=== PATIENT | female | born 1960 ===

== ENCOUNTER → 2019-03-16 20:57 | Outpatient (ROUT) | payer OTHER, SELFPAY ==
[2019-03-16 21:42] LABS: Add Manual Diff / Slide Review NO; Basophils Absolute Auto 100 /uL (0-100); Eosinophils Absolute Auto 100 /uL (0-450); Eosinophils Percent Auto 1.6 % (2-4); Hematocrit 45.8 % (36-46); Hemoglobin 15.4 g/dL (12.0-16.0); Lymphocytes Absolute Auto 1600 /uL (1100-4500); Lymphocytes Percent Auto 31.5 % (25-40); Mean Corpuscular HGB Conc 33.7 % (30-36); Mean Corpuscular Hemoglobin 30.6 PG (26-34); Mean Corpuscular Volume 90.9 fL (80-100); Monocytes Absolute Auto 300 /uL (0-900); Monocytes Percent Auto 5.5 % (3-14); Neutrophils Absolute Auto 3000 /uL (1500-7000); Neutrophils Percent Auto 60.4 % (50-75); Platelet Count 262 X10^3/uL (150-400); Red Blood Cell Count 5.04 X10^6/uL (4.0-5.2); Red Cell Distribution Width 12.8 % (11.6-14.8); White Blood Cell Count 4.9 X10^3/uL (4.5-11.0)
[2019-03-16 21:59] LABS: Alanine Aminotransferase 48 IU/L (9-52)
[2019-03-19 19:42] LABS: ANA Pattern Speckled; ANA Screen, IFA Positive (Negative)
[2019-03-26 15:30] LABS: ANA Titer 1:40 titer (<1:40)
== END ==
PROVIDERS: Visit Provider Naturopath
DX: M13.0 Polyarthritis, unspecified (principal); R94.5 Abnormal results of liver function studies
CPT/HCPCS: 36415; 84460; 85025; 86038

== ENCOUNTER → 2019-04-16 22:47 | Outpatient (ROUT) | payer OTHER, SELFPAY ==
[2019-04-17 00:05] LABS: Free T3, Triiodothyronine Free 6.15 pg/mL (2.77-5.27)
[2019-04-17 00:18] LABS: Thyroid Stimulating Hormone 0.03 uIU/mL (0.47-4.68)
== END ==
PROVIDERS: Visit Provider Naturopath
DX: E03.9 Hypothyroidism, unspecified (principal)
CPT/HCPCS: 36415; 81291; 84436; 84443; 84481